=== PATIENT | male | born 1940 | race Caucasian/White ===

== ENCOUNTER 2020-10-06 09:41 | Emergency (ER) | payer MEDICARE, BC ==
[2020-10-06] MEDS ORDERED: Lactated Ringers 1,000 ML IV ONE (10:08)
--- NOTE | 2020-10-06 10:19 | EDM.PDOC ---
ED HPI GENERAL MEDICAL PROBLEM - General Chief Complaint: Neurological Problem Stated Complaint: MEDICAL Time Seen by Provider: 10/06/20 10:00 Source of Information: Reports: Patient, EMS, RN History Limitations: Reports: Other (no old records) - History of Present Illness INITIAL COMMENTS - FREE TEXT/NARRATIVE: 80 yo male from [place] is visiting a friend locally. He came up yesterday and slept at the friend's home. He normally uses CPAP at night and didn't bring it along so he didn't sleep well last night. He went to the [employer] this morning and fell asleep at the table and 911 was called who transported him to the ER. He reports that he had chills last night. He has not taken any antipyretics today. No other current complaints. Recently finished a course of antibiotics for cellulitis of the L lower leg, did not go back for a follow up visit. Has had his Covid vaccines. Onset: Today Onset Date: 10/06/20 Duration: Hour(s):, Constant Location: Reports: Generalized Quality: Reports: Other (no pain) Severity: Moderate Improves with: Reports: Other (sleeping with his CPAP) Worsens with: Reports: Other (not sleeping with his CPAP) Context: Reports: Other (obstructive sleep apnea) Associated Symptoms: Reports: Fever/Chills (not aware of fever). Denies: Cough, Diaphoresis, Headaches, Nausea/Vomiting, Rash, Shortness of Breath Treatments [employer]: Reports: Other (see below) (none) - Related Data Allergies Allergy/AdvReac Type Severity Reaction Status Date / Time ibuprofen Allergy Abdominal Verified 10/06/20 09:51 Cramps Home Meds: Home Meds Albuterol Sulfate [Proair Digihaler] 2 puff INH Q4HR PRN 10/06/20 [History] Albuterol/Ipratropium [DuoNeb 3.0-0.5 MG/3 ML] 1 ampule INH QID 10/06/20 [History] Azithromycin [Zithromax] 250 mg PO DAILY #4 tablet 10/06/20 [Rx] Diclofenac Sodium [Voltaren 1% Gel] 1 applic TOP QID PRN 10/06/20 [History] Escitalopram Oxalate [Lexapro] 1 tab PO DAILY 10/06/20 [History] Fluticasone Propionate [Flonase] 2 spray INH BID 10/06/20 [History] Fluticasone/Vilanterol [Breo Ellipta 100-25 MCG Inhalation Kit] 1 dose INH DAILY 10/06/20 [History] Furosemide [Lasix] 1 tab PO DAILY 10/06/20 [History] Mirtazapine 1 - 2 tab PO BEDTIME PRN 10/06/20 [History] Montelukast [Singulair] 1 tab PO BEDTIME 10/06/20 [History] Pramipexole [Mirapex] 1 tab PO TID 10/06/20 [History] Tamsulosin [Flomax] 1 tab PO DAILY 10/06/20 [History] Zolpidem [Ambien] 1 tab PO BEDTIME 10/06/20 [History] atorvaSTATin [Lipitor] 1 tab PO DAILY 10/06/20 [History] dilTIAZem HCL [Dilt-Xr] 1 tab PO DAILY 10/06/20 [History] lisinopriL [Lisinopril] 1 tab PO DAILY 10/06/20 [History] Social & Family History - Tobacco Use Tobacco Use Status *Q: Never Tobacco User ED ROS GENERAL - Review of Systems Review Of Systems: See Below Constitutional: Reports: Chills. Denies: Fever HEENT: Reports: No Symptoms Respiratory: Reports: No Symptoms Cardiovascular: Reports: No Symptoms GI/Abdominal: Reports: No Symptoms : Reports: No Symptoms Musculoskeletal: Reports: No Symptoms Skin: Reports: No Symptoms Neurological: Reports: Other (Very sleepy) Psychiatric: Reports: No Symptoms ED EXAM, NEURO - Physical Exam Exam: See Below Exam Limited By: No Limitations General Appearance: Alert, WD/WN, Obese Eye Exam: Bilateral Eye: Normal Inspection Ears: Normal External Exam, Normal Canal, Hearing Loss Nose: Normal Inspection, No Blood Throat/Mouth: Normal Inspection, Normal Lips, Normal Oropharynx, Normal Voice, No Airway Compromise Head Exam: Atraumatic, Normocephalic Neck: Normal Inspection Respiratory/Chest: No Respiratory Distress, Lungs Clear, Normal Breath Sounds, No Accessory Muscle Use Cardiovascular: Regular Rate, Rhythm, No Edema GI/Abdominal: Normal Bowel Sounds, Soft, Non-Tender, No Distention Neurological: Alert, Normal Mood/Affect, CN II-XII Intact, No Motor/Sensory Deficits, Oriented x 3 Back Exam: Normal Inspection. No: CVA Tenderness (R), CVA Tenderness (L) Extremities: Normal Inspection, Normal Range of Motion, Non-Tender, No Pedal Edema. No: Pedal Edema Psychiatric: Normal Affect, Normal Mood Skin Exam: Warm, Dry, Intact, Erythema (some erythema of both lower legs, not hot to touch on either leg. ), Rash (tinea rash L axilla) Course - Vital Signs Last Recorded V/S: Last Vital Signs Temp 36.9 C 10/06/20 11:44 Pulse 76 10/06/20 15:42 Resp 21 H 10/06/20 10:49 BP 118/54 L 10/06/20 15:42 Pulse Ox 97 10/06/20 15:42 - Orders/Labs/Meds Orders: Active Orders 24 hr Category Date Time Status Chest 2V [CR] Stat Exams 10/06/20 12:03 Taken Labs: Laboratory Tests 10/06/20 10/06/20 10/06/20 Range/Units 10:17 10:17 10:17 WBC 6.1 (4.5-11.0) K/uL RBC 4.19 L (4.30-5.90) M/uL Hgb 12.5 (12.0-15.0) g/dL Hct 39.2 L (40.0-54.0) % MCV 94 (80-98) fL MCH 30 (27-31) pg MCHC 32 (32-36) % Plt Count 226 (150-400) K/uL Sodium 136 L (140-148) mmol/L Potassium 5.1 (3.6-5.2) mmol/L Chloride 98 L (100-108) mmol/L Carbon Dioxide 26 (21-32) mmol/L Anion Gap 17.1 H (5.0-14.0) mmol/L BUN 29 H (7-18) mg/dL Creatinine 2.4 H (0.8-1.3) mg/dL Est Cr Clr Drug Dosing 22.96 mL/min Estimated GFR (MDRD) 26 L (>60) Glucose 103 (74-106) mg/dL Calcium 8.7 (8.5-10.1) mg/dL C-Reactive Protein 2.89 H (0.0-0.3) mg/dL Urine Color (YELLOW) Urine Appearance (CLEAR) Urine pH (5.0-8.0) Ur Specific [place] (1.008-1.030) Urine Protein (NEGATIVE) mg/dL Urine Glucose (UA) (NEGATIVE) mg/dL Urine Ketones (NEGATIVE) mg/dL Urine Occult Blood (NEGATIVE) Urine Nitrite (NEGATIVE) Urine Bilirubin (NEGATIVE) Urine Urobilinogen (0.2-1.0) EU/dL Ur Leukocyte Esterase (NEGATIVE) Urine RBC (0-5) Urine WBC (0-5) Ur Epithelial Cells Amorphous Sediment Urine Bacteria Urine Mucus 10/06/20 Range/Units 11:29 WBC (4.5-11.0) K/uL RBC (4.30-5.90) M/uL Hgb (12.0-15.0) g/dL Hct (40.0-54.0) % MCV (80-98) fL MCH (27-31) pg MCHC (32-36) % Plt Count (150-400) K/uL Sodium (140-148) mmol/L Potassium (3.6-5.2) mmol/L Chloride (100-108) mmol/L Carbon Dioxide (21-32) mmol/L Anion Gap (5.0-14.0) mmol/L BUN (7-18) mg/dL Creatinine (0.8-1.3) mg/dL Est Cr Clr Drug Dosing mL/min Estimated GFR (MDRD) (>60) Glucose (74-106) mg/dL Calcium (8.5-10.1) mg/dL C-Reactive Protein (0.0-0.3) mg/dL Urine Color Yellow (YELLOW) Urine Appearance Slightly cloudy A (CLEAR) Urine pH 5.0 (5.0-8.0) Ur Specific [place] >= 1.030 (1.008-1.030) Urine Protein 30 H (NEGATIVE) mg/dL Urine Glucose (UA) Negative (NEGATIVE) mg/dL Urine Ketones Negative (NEGATIVE) mg/dL Urine Occult Blood Negative (NEGATIVE) Urine Nitrite Negative (NEGATIVE) Urine Bilirubin Small H (NEGATIVE) Urine Urobilinogen 0.2 (0.2-1.0) EU/dL Ur Leukocyte Esterase Negative (NEGATIVE) Urine RBC 0-5 (0-5) Urine WBC 0-5 (0-5) Ur Epithelial Cells Rare Amorphous Sediment Few Urine Bacteria Moderate Urine Mucus Rare Meds: Medications Discontinued Medications Generic Name Dose Route Start Last Admin Trade Name Everardo TEJADA Reason Stop Dose Admin Azithromycin 500 mg 10/06/20 12:43 10/06/20 12:55 Azithromycin 250 Mg Tab PO 10/06/20 12:44 500 mg ONETIME ONE Administration Lactated Ringer's 1,000 mls @ 1,000 mls/hr 10/06/20 10:08 10/06/20 10:56 Ringers, Lactated IV 10/06/20 11:07 1,000 mls/hr BOLUS ONE Administration - Radiology Interpretation Free Text/Narrative:: CXR-suspect posterior infiltrate seen on lateral view. - Re-Assessments/Exams Free Text/Narrative Re-Assessment/Exam: 10/06/20 13:13 Discussed the condition of his father with the son, Ronal. Advised he is not safe to drive, needs his sleep machine tested as it may not be optimally functioning(son says he sleeps all the time even when he uses it) and that perhaps he needs to work with his primary to take his license away. May even benefit from assisted living. Son is going to see if he can find someone to come up to [place] with him to retrieve dad and his car. Departure - Departure Time of Disposition: 15:52 Disposition: Home, Self-Care 01 Condition: Fair Clinical Impression: Noncompliance, Bronchitis, Tinea corporis, Mild dehydration Sleep apnea Qualifiers: Sleep apnea type: obstructive Qualified Code(s): G47.33 - Obstructive sleep apnea (adult) (pediatric) - Discharge Information *PRESCRIPTION DRUG MONITORING PROGRAM REVIEWED*: Not Applicable *COPY OF PRESCRIPTION DRUG MONITORING REPORT IN PATIENT HATTIE: Not Applicable Prescriptions: Azithromycin [Zithromax] 250 mg PO DAILY #4 tablet Instructions: Sleep Apnea, [id number], Dehydration, Elderly, [id number] Referrals: PCP,None [Primary Care Provider] - Forms: ED Department Discharge Additional Instructions: Make sure you use your CPAP machine every night. No driving today due to excessive sleepiness. Take azithromycin as directed until gone. Follow up with your provider early next week, call for an appointment. Show your left axilla to your doctor so he can get you started on an antifungal medication. Sepsis Event Note (ED) - Evaluation Sepsis Screening Result: No Definite Risk - Focused Exam Vital Signs: Vital Signs Temp Pulse Resp BP Pulse Ox 10/06/20 15:42 76 118/54 L 97 10/06/20 15:28 51 L 81/38 L 97 10/06/20 15:18 59 L 96/43 L 10/06/20 13:04 58 L 97/40 L 93 L 10/06/20 12:49 60 100/43 L 87 L 10/06/20 12:34 63 102/42 L 90 L 10/06/20 12:19 95/46 L 10/06/20 12:04 105/41 L 10/06/20 11:49 109/47 L 10/06/20 11:44 36.9 C 10/06/20 11:39 119/75 10/06/20 11:24 111/48 L 10/06/20 10:49 59 L 21 H 112/40 L 93 L 10/06/20 09:58 37.8 C 63 16 91/46 L 96 10/06/20 09:47 65 18 91/46 L 88 L - My Orders Last 24 Hours: My Active Orders 10/06/20 12:03 Chest 2V [CR] Stat - Assessment/Plan Last 24 Hours: My Active Orders 10/06/20 12:03 Chest 2V [CR] Stat
[2020-10-06] MEDS ORDERED: Azithromycin 250 MG Tab PO ONE (12:43)
--- NOTE | 2020-10-08 10:20 | CRLCR ---
Indication: Mild hypoxia. Low-grade fever. Technique: Chest 2 views Comparison: None Findings: Cardiovascular and mediastinum: Heart size and vasculature are normal in caliber and appearance. Lungs and pleural spaces: Lungs are clear. No sign of infiltrate or mass. No sign of pleural effusion. No pneumothorax. Bones and soft tissues: No significant findings. Impression: Negative chest. No sign of pneumonia. Dictated by Ronal Parsons MD @ 10/08/2020 10:19:[address] Ronal Parsons @ Oct 08 2020 10:19AM
== END 2020-10-06 15:59 | disposition home or self-care (01) ==
LOC: JP.ED 09:41
DX: G47.33 Obstructive sleep apnea (adult) (pediatric) (principal); J40 Bronchitis, not specified as acute or chronic; B35.4 Tinea corporis; E86.0 Dehydration; Z79.899 Other long term (current) drug therapy; Z91.14 Patient's other noncompliance with medication regimen
CPT/HCPCS: 36415; 71046; 80048; 81001; 85027; 86140; 99283; 99284; A9270; J7120